=== PATIENT | male | born 1965 | race Caucasian/White ===

== ENCOUNTER 2023-04-29 14:28 | Day surgery (SDC) | payer OTHER ==
[2023-04-29] MEDS ORDERED: XYLOCAINE-MPF 1% 5ML SDV IJ ONE (14:29)
[2023-04-29] MEDS ORDERED: BUPIVACAINE 0.5% VIAL IJ ONE (14:29)
[2023-04-29] MEDS ORDERED: Depo-Medrol 40 MG/ML IM ONE (14:29)
--- NOTE | 2023-04-29 20:14 | XRAY ---
Indication: Right SI joint injection Intraoperative fluoroscopy provided for 10 seconds. Single digital spot image submitted for interpretation demonstrates posterior needle tip projecting over the right SI joint. Correlate with intraoperative findings/report.
--- NOTE | 2023-04-30 12:03 | XRAY ---
10 seconds of fluoroscopy was used in surgery for a right sacroiliac joint injection.
== END 2023-04-29 18:05 | disposition home or self-care (01) ==
LOC: SDC-PAIN 14:28
PROVIDERS: ATTEND Psychiatry & Neurology Pain Medicine
DX: M46.1 Sacroiliitis, not elsewhere classified (principal)
CPT/HCPCS: 20610; 72170; 77002; J1030; Q9966

== ENCOUNTER 2023-06-03 12:29 | Day surgery (SDC) | payer OTHER ==
[2023-06-03] MEDS ORDERED: LIDOCAINE HCL 2% 100 MG/5 ML IJ ONE (12:30)
[2023-06-03] MEDS ORDERED: DIPRIVAN 200 MG/20 ML IV ONE (14:26)
[2023-06-03] MEDS ORDERED: Versed 2 MG/2 ML Injection ONE (14:42)
[2023-06-03] MEDS ORDERED: Lactated Ringers 1,000 ML IV ONE (14:51)
--- NOTE | 2023-06-03 14:59 | XRAY ---
Indication: Bilateral L4-S1 MBB. Intraoperative fluoroscopy provided for 17 seconds. Single digital spot image submitted for interpretation demonstrates posterior needle tips projecting over expected left and right L4-S1 nerve roots. Correlate with intraoperative findings/report.
--- NOTE | 2023-06-03 15:08 | XRAY ---
17 seconds of fluoroscopy was used in surgery for a bilateral L4-S1 MBB.
== END 2023-06-03 15:07 | disposition home or self-care (01) ==
LOC: SDC-PAIN 12:29
PROVIDERS: ATTEND Psychiatry & Neurology Pain Medicine
DX: M47.816 Spondylosis without myelopathy or radiculopathy, lumbar region (principal)
CPT/HCPCS: 64493; 64494; 72020; 77002; J2250; J2704